=== PATIENT | female | born 1975 | race Caucasian/White ===

== ENCOUNTER 2018-01-12 18:43 | Emergency (ER) | payer OTHER ==
[2018-01-12 19:21] VITALS: BP 119/75
--- NOTE | 2018-01-12 19:38 | UC ---
Complaint Female HPI - HPI Summary HPI Summary: lower abdomen and lower back pain, odor to urine and increase frequency, started today. [ End ] - History Of Current Complaint Chief Complaint: UCGI Stated Complaint: URINARY COMPLAINT Time Seen by Provider: 01/12/18 19:28 Hx Obtained From: Patient Hx Last Menstrual Period: 12/23/17 ?: No Onset/Duration: Sudden Onset, Lasting Days - 1 Timing: Intermittent Severity Initially: Mild Severity Currently: Mild Pain Intensity: 2 Aggravating Factor(s): Urination Alleviating Factor(s): Nothing - Allergies/Home Medications Allergies/Adverse Reactions: Allergies Allergy/AdvReac Type Severity Reaction Status Date / Time doxycycline Allergy Hives Verified 01/12/18 19:27 Penicillins Allergy Hives Verified 01/12/18 19:27 Sulfa (Sulfonamide Allergy Hives Verified 01/12/18 19:27 Antibiotics) Home Medications: Home Medications Cholecalciferol TAB* [Vitamin D TAB*] 5,000 units PO DAILY 01/12/18 [History Confirmed 01/12/18] Multivit with Calcium,Iron,Min [Multiple Vitamins For Women] 1 each PO DAILY [History Confirmed 01/12/18] PMH/Surg Hx/FS Hx/Imm Hx Previously Healthy: Yes - Surgical History Surgical History: Yes Surgery Procedure, Year, and Place: Ganglion left foot, T&A - Family History Known Family History: Negative: Hypertension - Social History Alcohol Use: Occasionally Substance Use Type: None Smoking Status (MU): Never Smoked Tobacco - Immunization History Most Recent Influenza Vaccination: Fall 2013 Review of Systems Constitutional: Negative Skin: Negative Eyes: Negative ENT: Negative Respiratory: Negative Cardiovascular: Negative Gastrointestinal: Negative Genitourinary: Dysuria, Urgency Motor: Negative Neurovascular: Negative Musculoskeletal: Negative Neurological: Negative Psychological: Negative Is Patient Immunocompromised?: No All Other Systems Reviewed And Are Negative: Yes Physical Exam Triage Information Reviewed: Yes Appearance: Well-Appearing, Well-Nourished, Pain Distress Vital Signs: Initial Vital Signs Temp 99.0 F 01/12/18 19:17 Pulse 59 01/12/18 19:17 Resp 16 01/12/18 19:17 BP 119/75 01/12/18 19:17 Pulse Ox 100 01/12/18 19:17 Vital Signs Reviewed: Yes Eye Exam: Normal ENT Exam: Normal Dental Exam: Normal Neck exam: Normal Respiratory Exam: Normal Respiratory: Positive: Chest non-tender, Lungs clear, Normal breath sounds Cardiovascular Exam: Normal Cardiovascular: Positive: RRR, No Murmur, Pulses Normal Abdomen Description: Positive: Soft, CVA Tenderness (R) - neg, CVA Tenderness (L ) - neg Musculoskeletal Exam: Normal Neurological Exam: Normal Psychological Exam: Normal Skin Exam: Normal Complaint Female Dx - Course Course Of Treatment: hx obtained, exam performed ,meds reviewed, UA obtained, treated - Differential Dx/Diagnosis Differential Diagnosis/HQI/PQRI: Ureteral Stone, Urinary Tract Infection Provider Diagnoses: UTI Discharge - Sign-Out/Discharge Documenting (check all that apply): Patient Departure All imaging exams completed and their final reports reviewed: No Studies - Discharge Plan Condition: Stable Disposition: HOME Prescriptions: Nitrofurantoin Macrocrystals* [Macrodantin 100 mg*] 100 mg PO BID #[id number] cap Patient Education Materials: Urinary Tract Infection in Women (DC) Referrals: Yumiko Mosher MD [Primary Care Provider] - Additional Instructions: 1. increase fluid intake 2. Take the antibiotics as prescribed. 3. Follow up with any worsening symptoms - Billing Disposition and Condition Condition: STABLE Disposition: Home
[2018-01-12] MEDS ORDERED: Nitrofurantoin Macrocrystals* 50 MG CAP PO ONE (19:47)
== END 2018-01-12 20:00 | disposition home or self-care (01) ==
LOC: UCCORT 18:43
DX: Z88.0 Allergy status to penicillin (principal); Z88.1 Allergy status to other antibiotic agents; N39.0 Urinary tract infection, site not specified
CPT/HCPCS: 81003; 87086; 99212; A9270-GY; G0463